=== PATIENT | male | born 1995 | race Two or more races ===

== ENCOUNTER 2024-06-08 18:04 | Emergency (ER) | payer SELFPAY ==
[~2024-06-08] VITALS: Ht 162.6 cm; Wt 94.1 kg
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
[2024-06-08] MEDS: IOHEXOL 300 MG/ML 100ML BOTTLE IJ ONE (19:10)
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
[2024-06-08] MEDS: KETOROLAC TROMETH 30 MG/ML 1ML VIAL IM STA (21:38)
[2024-06-08 22:03] VITALS: BP 151/90; PULSE 94; RESP 18; TEMP 98.9; O2SAT 100
[2024-06-08] MEDS: HYDROcodone-ACET 5/325MG TAB PO ONE (22:10)
== END 2024-06-08 22:40 | disposition home or self-care (01) ==
LOC: ER 18:04
DX: S42.012A Anterior displaced fracture of sternal end of left clavicle, initial encounter for closed fracture (principal); V89.2XXA Person injured in unspecified motor-vehicle accident, traffic, initial encounter; Y93.89 Activity, other specified; Y92.89 Other specified places as the place of occurrence of the external cause; Y99.8 Other external cause status
CPT/HCPCS: 71250